=== PATIENT | female | born 1960 | race Caucasian/White ===

== ENCOUNTER → 2016-06-07 | Outpatient (CLI) | payer OTHER | LOC: PREOP 07:02 | PROVIDERS: ATTEND Surgery | DX: Z01.818 Encounter for other preprocedural examination (principal); Z12.11 Encounter for screening for malignant neoplasm of colon ==

== ENCOUNTER 2016-06-12 09:50 | Day surgery (SDC) | payer OTHER ==
[~2016-06-12] VITALS: Ht 160 cm; Wt 129.3 kg
[2016-06-12] MEDS ORDERED: NS IV 1000 ML 1,000 ML ONE (10:10)
[2016-06-12] MEDS ORDERED: proPOfol 200 MG/20 ML (DIPRIVAN) VIAL IV ONE ×3 (10:14→10:56)
[2016-06-12] MEDS ORDERED: MIDAZOLAM 2 MG/2 ML (VERSED) VIAL ONE (10:14)
[2016-06-12] MEDS ORDERED: NS IV 1000 ML 1,000 ML IV STA (10:23)
[2016-06-12 10:25] VITALS: BP 124/81
--- NOTE | 2016-06-12 10:26 | Progress Note-Pre Operative ---
Pre-Operative Progress Note H&P Reviewed The H&P was reviewed, patient examined and no changes noted. Date H&P Reviewed: Jun 12, 2016 Time H&P Reviewed: 10:26 Pre-Operative Diagnosis: screening colonoscopy DINESH GARCIA DO Jun 12, 2016 10:26 am
[2016-06-12] MEDS ORDERED: FLUMAZENIL (ROMAZICON) 0.1 MG/ML 5 ML VIAL INJ PRN (10:30)
[2016-06-12] MEDS ORDERED: LIDOCAINE JELLY 2% (XYLOCAINE) 5 ML TUBE MM PRN (10:30)
[2016-06-12] MEDS ORDERED: NALOXONE 0.4 MG/ML 1 ML (NARCAN) VIAL IVP PRN (10:30)
--- NOTE | 2016-06-12 10:52 | Discharge Inst-Simple/Standard ---
Discharge Inst-Standard Patient Instructions/Follow Up Plan of Care/Instructions/FU: follow up with Dr. Pike in 2-3 weeks will need repeat colonoscopy in one year or sooner if changes in current condition. Activity as Tolerated: Yes Discharge Diet: No Restrictions ANGELIA LONGO APRN Jun 12, 2016 10:51
--- NOTE | 2016-06-12 11:20 | Progress Note-Post Operative ---
Post-Operative Progess Note Pre-Operative Diagnosis screening colonoscopy Post-Operative Diagnosis multiple colon polyps Post-Op Procedure Note Date of Procedure: Jun 12, 2016 Name of Procedure: colonoscopy with hot bx polypectomy x 3 and snare polypectomy x 3 Procedure Note/Findings see note Anesthesia Type per stream control officer Estimated blood loss (mL): none Specimen(s) collected colon polyps x 6 DINESH GARCIA DO Jun 12, 2016 11:20
[2016-06-12 11:35] VITALS: BP 145/77
[2016-06-12 12:00] VITALS: BP 116/80
[2016-06-12 12:01] VITALS: BP 116/80
--- NOTE | 2016-06-12 14:43 | OPERATIVE REPORT ---
PROCEDURE PHYSICIAN: DINESH GARCIA DATE OF PROCEDURE: 06/12/2016 PREOPERATIVE DIAGNOSIS: Screening colonoscopy. POSTOPERATIVE DIAGNOSIS: Multiple colon polyps. PROCEDURE: Colonoscopy with hot biopsy polypectomy x 3 and snare polypectomy x 3 SURGEON: Shahzad. ANESTHESIA: Per POL[employer]ER AND BUFFER small. ESTIMATED BLOOD LOSS: None. COMPLICATIONS: None. INDICATIONS: The patient is a 56-year-old female in need of screening colonoscopy. She understands the risks and benefits of the procedure and wished to proceed with proceed. Consent was signed on the chart. PROCEDURE: The patient was taken to the endoscopy suite, placed in the left lateral recumbent position. Timeout was performed. Digital rectal exam was performed. There were no palpable polyps, masses, or ulcerations. The scope was inserted in the rectum, advanced all of the way to the cecum with minimal difficulty. Prep was adequate with irrigation and suction. The scope was then begun to be slowly retracted back within the cecum a small polyp was present just posterior the ileocecal valve and near the appendiceal orifice. Hot biopsy polypectomy was performed. The scope was then slowly retracted back. There were no polyps, masses, ulcerations in the ascending colon. There were no polyps, masses or ulcerations within the transverse colon. In the descending colon near the splenic flexure a larger polyp was present which snare polypectomy was performed and specimen was obtained. The scope was continued to be slowly retracted back where there were 3 other polyps appearing to be in the mid sigmoid colon which two snare polypectomies were performed and one hot biopsy polypectomy was performed. The scope was continued be slowly retracted back in the distal sigmoid. There is another polyp which hot biopsy polypectomy was performed. The scope was also retroflexed in the rectum noting no further pathology. The scope was returned to its normal position slowly withdrawn until completely removed. RECOMMENDATIONS: The patient will follow-up on pathology in 2 to 3 weeks. We recommend a repeat colonoscopy in 6 to 12 months. If she has any problems prior to that, she should be reevaluated at that time. Job ID: [id number] Dictated Date: 06/12/2016 11:23:24 Street Light Mechanic Date: 06/12/2016 14:34:13 / adelaida
== END 2016-06-12 12:30 | disposition home or self-care (01) ==
LOC: SDC 09:50
PROVIDERS: ATTEND Surgery
DX: Z12.11 Encounter for screening for malignant neoplasm of colon (principal); D12.0 Benign neoplasm of cecum; K63.5 Polyp of colon